=== PATIENT | female | born 1995 | race Caucasian/White ===

== ENCOUNTER → 2016-12-15 | Outpatient (CLI) | payer OTHER ==
[~2016-12-15] MED LIST: ACET50TA PO; ADVI200C5 PO; COLA100C5 PO; PRENTAB9 PO
[2016-12-15 14:32] LABS: BASO % 0.4 % (0.0-1.0); EOS # 0.1 K/mm3 (0.0-0.50); EOS % 0.7 % (0.0-3.0); LARGE UNSTAINED CELL # 0.1 K/mm3 (0.0-0.4); LARGE UNSTAINED CELL % 0.7 % (0.0-4.0); LYMPH # 1.6 K/mm3 (1.5-6.5); LYMPH % 14.2 % (24.0-44.0); MEAN CORPUSCULAR HGB CONC 34.5 g/dl (32.0-36.5); MEAN CORPUSCULAR VOLUME 89.6 fl (80.0-96.0); MONO # 0.4 K/mm3 (0.0-0.8); MONO % 4.1 % (0.0-5.0); NEUTROPHILS # 8.4 K/mm3 (1.8-7.7); NEUTROPHILS % 79.9 % (36.0-66.0); PLATELET COUNT, AUTOMATED 389 k/mm3 (150-450); RED CELL DISTRIBUTION WIDTH 12.5 % (11.5-14.5); WHITE BLOOD COUNT 10.5 K/mm3 (4.0-10.0)
[2016-12-16 11:27] LABS: HBsAg Prenatal NEGATIVE (NEGATIVE)
== END ==
LOC: M SMT 10:31
PROVIDERS: ATTEND Advanced Practice Midwife
DX: Z34.83 Encounter for supervision of other normal pregnancy, third trimester (principal)

== ENCOUNTER → 2016-12-16 | Outpatient (CLI) | payer OTHER ==
--- NOTE | 2016-12-16 11:07 | REP ---
OB ULTRASOUND: Real-time sonographic evaluation of the gravid uterus is performed. There is a single living intrauterine gestation, estimated gestational age 30 weeks 1 day, EDC 02/23/2017. Biometry and Growth: BPD 76 mm = 30 weeks 2 days HC 286 mm = 31 weeks 3 days AC 264 mm = 30 weeks 4 days FL 56 mm = 29 weeks 3 days HC/AC ratio 1.08 within normal range. Estimated weight 1540 grams, 43rd percentile. SEEN/GROSSLY UNREMARKABLE Lateral ventricles Yes Posterior fossa Yes Upper lip Yes Four-chamber heart No LVOT Yes RVOT Yes Stomach Yes Cord insertion Yes Three vessel cord Yes Kidneys Yes Bladder Yes Spine No Cervical length: Closed and measures 5.1 cm in length. heart rate: 133 beats per minute. position: Vertex. Placenta: Anterior and grade 1 with no previa or abruption. Amniotic fluid: Within normal limits. SUHAIL is 11.3 within the normal range of 9.0 to 23.5. S/D ratio 2.92 within normal range. RI 0.66 within normal range. Signed by Jimmy Sibley MD 12/16/2016 05:09 P
== END ==
LOC: M RAD 08:16
PROVIDERS: ATTEND Advanced Practice Midwife
DX: Z36 Encounter for antenatal screening of mother (principal); Z3A.30 30 weeks gestation of pregnancy

== ENCOUNTER → 2017-01-18 | Outpatient (CLI) | payer OTHER ==
--- NOTE | 2017-01-18 17:30 | REP ---
OB ULTRASOUND: Real-time sonographic evaluation of the gravid uterus is performed. There is a single living intrauterine gestation. The estimated gestational age is 34 weeks 6 days based on the first ultrasound. EDC 02/23/2017. Today's measurements indicate appropriate growth. BPD 82 mm = 32 weeks 6 days, at the 19th percentile. HC 305 mm = 34 weeks 0 days, at the 36th percentile. AC 311 mm = 35 weeks 0 day, at the 52nd percentile. Femur length 66 mm = 34 weeks 0 days, at the 37th percentile. HC/AC ratio 1.16 within normal range. Estimated weight 2426 grams 39th percentile. heart rate 131 beats per minute. Amniotic fluid within normal limits. SUHAIL 13.8 within normal range of 7.9 to 24.9. SD ratio 2.62 is within normal range. RI 0.62 is within normal range. SEEN/GROSSLY UNREMARKABLE Lateral ventricles Yes Posterior fossa Yes Upper lip No Four-chamber heart No LVOT No RVOT Yes Stomach No Cord insertion Yes Three vessel cord Yes Kidneys Yes Bladder Yes Spine Yes position: Vertex. Placenta: Anterior and grade 2 with no previa or abruption. Cervix is closed and measures 4.4 cm in length. Signed by Jimmy Sibley MD 01/19/2017 01:44 P
== END ==
LOC: M RAD 16:25
PROVIDERS: ATTEND Obstetrics & Gynecology
DX: Z36 Encounter for antenatal screening of mother (principal)

== ENCOUNTER → 2017-01-28 | Outpatient (REF) | payer OTHER, MEDICAID | LOC: M LAB REF 16:51 | PROVIDERS: ATTEND Advanced Practice Midwife | DX: Z34.83 Encounter for supervision of other normal pregnancy, third trimester (principal) ==

== ENCOUNTER 2017-02-16 16:49 | Inpatient (IN) | payer MEDICAID, OTHER ==
[~2017-02-16] VITALS: Ht 162.6 cm; Wt 76.0 kg
[2017-02-16 17:18] VITALS: BP 134/89
[2017-02-16] MEDS ORDERED: PRENTAB9 PO (17:52)
[2017-02-16] MEDS ORDERED: ACETAMINOPHEN 500 MG TAB PO ONE (18:00)
[2017-02-16 18:09] VITALS: BP 128/73
[2017-02-16] MEDS ORDERED: LR 1,000 ML IV SCH (19:28)
[2017-02-16] MEDS ORDERED: LACTATED RINGER'S 1000 ML IV STA (19:28)
[2017-02-16] MEDS ORDERED: OXYTOCIN DRIP 30 UNITS in APPROPRIATE DILUENT 1 EA IV SCH (19:30)
[2017-02-16 20:13] LABS: MEAN CORPUSCULAR HEMOGLOBIN 30.4 pg (27.0-33.0); MEAN CORPUSCULAR HGB CONC 34.3 g/dl (32.0-36.5); MEAN CORPUSCULAR VOLUME 88.5 fl (80.0-96.0); RED CELL DISTRIBUTION WIDTH 12.9 % (11.5-14.5); WHITE BLOOD COUNT 10.5 10^3/uL (4.0-10.0)
[2017-02-16 21:30] VITALS: BP 123/78
[2017-02-16 22:27] VITALS: BP 108/69
[2017-02-16 23:05] VITALS: BP 116/69
[2017-02-16 23:26] VITALS: BP 120/62
[2017-02-17] VITALS (36 sets, daily range): BP systolic 107–192; BP diastolic 56–109
[2017-02-17] MEDS ORDERED: PROMETHAZINE INJ 25 MG/ML VIAL (J2550) IV ONE (11:00)
[2017-02-17] MEDS ORDERED: BUTORPHANOL 2 MG/ML INJ (J0595) IV ONE (11:00)
[2017-02-17] MEDS ORDERED: FENTANYL 2MCG/ML ROPIVACAINE 0.2% IN 0.9% NACL 200ML IVBAG As Ordered ONE (14:17)
[2017-02-17] MEDS ORDERED: ONDANSETRON 4MG/2ML VIAL (J2405) IV PRN ×2 (15:30→16:45)
[2017-02-17] MEDS ORDERED: REFRIGERATOR IV KEYS XX PRN (15:30)
[2017-02-17] MEDS ORDERED: diphenhydrAMINE INJ 50MG/ML VIAL (J1200) IV PRN (15:30)
[2017-02-17] MEDS ORDERED: NALOXONE INJ 0.4 MG/1 ML VIAL (J2310) IV PRN (15:30)
[2017-02-17] MEDS ORDERED: ePHEDrine SULFATE 25 MG/5 ML(5MG/ML) SYRINGE IV PRN (15:30)
[2017-02-17] MEDS ORDERED: FENTANYL/ROPIVACAINE/NACL BAG 200 ML EPIDURAL SCH (15:30)
[2017-02-17] MEDS ORDERED: EPIDURAL/PCA KEYS XX PRN (15:30)
[2017-02-17] MEDS ORDERED: EPIDURAL COMMENT XX SCH (15:30)
[2017-02-17] MEDS ORDERED: LACTATED RINGER'S 1000 ML IV PRN (15:30)
[2017-02-17] MEDS ORDERED: LIDOCAINE 1% MDV INJ 50 ML VIAL As Ordered ONE (16:00)
[2017-02-17 16:19] LABS: CORD GAS ABE V -5.8; CORD GAS HCO3 V 20.6 MEQ/L; CORD GAS O2 SAT V 72.1 %; CORD GAS PCO2 V 43.8 mmHg; CORD GAS PH V 7.291 UNITS; CORD GAS PO2 V 30.8 mmHg; CORD GAS SBC V 19.1 MEQ/L
[2017-02-17 16:21] LABS: CORD GAS ABE A -4.5; CORD GAS O2 SAT A 70.7 %; CORD GAS PCO2 A 45.3 mmHg; CORD GAS PH A 7.304 UNITS; CORD GAS PO2 A 29.4 mmHg; CORD GAS SBC A 20.2 MEQ/L; CORD GAS TCO2 A 23.4 MEQ/L
[2017-02-17] MEDS ORDERED: METHYLERGONOVINE MALEATE 0.2 MG TAB PO PRN (16:45)
[2017-02-17] MEDS ORDERED: MEASLES,MUMPS,RUBELLA VACCINE INJ (MMR-II) (90707) SC SCH (16:45)
[2017-02-17] MEDS ORDERED: OXYTOCIN DRIP 30 UNITS in APPROPRIATE DILUENT 1 EA IV ONE (16:45)
[2017-02-17] MEDS ORDERED: LIDOCAINE 1% MDV INJ 50 ML VIAL INFIL ONE (16:45)
[2017-02-17] MEDS ORDERED: DIBUCAINE 1% OINTMENT 30GM TOP PRN (16:45)
[2017-02-17] MEDS ORDERED: ACETAMINOPHEN 500 MG TAB PO PRN (16:45)
[2017-02-17] MEDS ORDERED: RHOGAM 300 MCG (1500 IU) INJ (J2790) IM SCH (16:45)
[2017-02-17] MEDS ORDERED: DOCUSATE SODIUM 100 MG CAP PO PRN (16:45)
--- NOTE | 2017-02-17 16:49 | DN ---
DATE: 02/17/2017 PREDELIVERY DIAGNOSIS: 39 weeks gestation. POSTDELIVERY DIAGNOSIS: Delivered. PROCEDURE: vacuum assisted vaginal delivery. SUPERVISOR LEAD BURNING: Dr. Raj Randall ANESTHESIA: Epidural. ESTIMATED BLOOD LOSS: 300 mL. FINDINGS: A 6 pounds, 14 ounce male infant, scores 8 and 9. DELIVERY SUMMARY: After approximately 45 minutes of second stage, the patient had arrest of descent at +3 station. Vacuum was applied and delivery was accomplished with a single controlled contraction along with maternal effort. There was no nuchal cord. The shoulders delivered with ease. The infant cried spontaneously and was handed to the mother. The cord was doubly clamped and cut. The placenta delivered spontaneously. The patient received IV pitocin immediately after delivery of the placenta. First-degree perineal laceration and first-degree right labial laceration were repaired with 2-0 and 3-0 chromic in the usual fashion. Sponge and needle counts were correct. MTDD
[2017-02-18 06:00] VITALS: BP 135/82
[2017-02-18] MEDS: PRENATAL VITAMINS CHEWABLE TABLET PO SCH (08:43)
[2017-02-18] MEDS: IBUPROFEN 800 MG TAB PO PRN (12:21)
[2017-02-18 18:00] VITALS: BP 136/63
[2017-02-19] MEDS: IBUPROFEN 800 MG TAB PO PRN (01:35)
[2017-02-19 06:00] VITALS: BP 125/72
[2017-02-19] MEDS: PRENATAL VITAMINS CHEWABLE TABLET PO SCH (09:00)
[2017-02-19] MEDS ORDERED: ACET50TA PO ×2 (15:24→15:36)
[2017-02-19] MEDS ORDERED: COLA100C5 PO (15:36)
[2017-02-19] MEDS ORDERED: ADVI200C5 PO (15:36)
== END 2017-02-19 16:15 | disposition home or self-care (01) | DRG 560 ==
LOC: M LDO 16:49 → M LDI 18:53 → M OBS 02-17 18:14
PROVIDERS: ADMIT Obstetrics & Gynecology; ATTEND Specialist
PROC: 3E033VJ Introduction of Other Hormone into Peripheral Vein, Percutaneous Approach (ICD-10-PCS; 2017-02-16)
PROC: 10D07Z6 Extraction of Products of Conception, Vacuum, Via Natural or Artificial Opening (ICD-10-PCS; principal; 2017-02-17)
PROC: 0HQ9XZZ Repair Perineum Skin, External Approach (ICD-10-PCS; 2017-02-17)
PROC: 10907ZC Drainage of Amniotic Fluid, Therapeutic from Products of Conception, Via Natural or Artificial Opening (ICD-10-PCS; 2017-02-17)
DX: O41.03X0 Oligohydramnios, third trimester, not applicable or unspecified (principal); O66.8 Other specified obstructed labor; F17.210 Nicotine dependence, cigarettes, uncomplicated; O99.333 Smoking (tobacco) complicating pregnancy, third trimester; Z91.19 Patient's noncompliance with other medical treatment and regimen; Z3A.39 39 weeks gestation of pregnancy; O32.4XX0 Maternal care for high head at term, not applicable or unspecified; O70.0 First degree perineal laceration during delivery; Z37.0 Single live birth

== ENCOUNTER 2018-03-08 10:44 | Emergency (ER) | payer OTHER ==
[2018-03-08] MEDS: NS 1,000 ML IV (11:45)
[2018-03-08 12:12] LABS: KETONE, URINE AUTO RFX NEGATIVE (NEGATIVE); MUCUS, URINE RFX SMALL (NEGATIVE); NITRITE, URINE AUTO RFX NEGATIVE (NEGATIVE); RBC, URINE AUTO RFX TNTC /HPF (0-3); SQUAM EPITHELIAL CELL UR AURFX 2 /HPF (0-6)
[2018-03-08 12:21] LABS: LEUKOCYTE ESTERASE UR AUTO RFX 3+ (NEGATIVE); WBC, URINE AUTO RFX TNTC /HPF (0-3)
== END 2018-03-08 12:46 | disposition admitted as inpatient to this hospital (09) ==
LOC: M ED 10:44
DX: O99.89 Other specified diseases and conditions complicating pregnancy, childbirth and the puerperium (principal); R10.9 Unspecified abdominal pain; Z3A.31 31 weeks gestation of pregnancy; O99.333 Smoking (tobacco) complicating pregnancy, third trimester; F17.200 Nicotine dependence, unspecified, uncomplicated
CPT/HCPCS: 76820

== ENCOUNTER 2018-03-08 12:35 | Outpatient (CLI) | payer OTHER ==
[2018-03-08 13:52] LABS: BASO # 0.1 10^3/uL (0.0-0.2); BASO % 0.4 % (0.0-1.0); EOS % 0.1 % (0.0-3.0); HEMATOCRIT 34.2 % (36.0-47.0); HEMOGLOBIN 11.7 g/dl (12.0-15.5); IMMATURE GRANULOCYTE % 0.5 % (0-3.0); LYMPH # 1.5 10^3/uL (1.5-6.5); MEAN CORPUSCULAR HEMOGLOBIN 30.4 pg (27.0-33.0); MEAN CORPUSCULAR HGB CONC 34.2 g/dl (32.0-36.5); MEAN CORPUSCULAR VOLUME 88.8 fl (80.0-96.0); MONO # 0.9 10^3/uL (0.0-0.8); MONO % 5.2 % (0.0-5.0); NEUTROPHILS # 13.9 10^3/uL (1.8-7.7); NEUTROPHILS % 84.8 % (36.0-66.0); PLATELET COUNT, AUTOMATED 390 10^3/uL (150-450); RED BLOOD COUNT 3.85 10^6/uL (4.00-5.40); RED CELL DISTRIBUTION WIDTH 12.5 % (11.5-14.5); WHITE BLOOD COUNT 16.4 10^3/uL (4.0-10.0)
[2018-03-08] MEDS: LR 1,000 ML IV (14:24)
[2018-03-08] MEDS: ceFAZolin SOD 1 GM in D5W MINI-BAG PLUS 50 ML IV (14:24)
[2018-03-08] MEDS: LACTATED RINGER'S 1000 ML IV (14:24)
[2018-03-09 10:35] LABS: HEPATITIS C VIRUS ABY INDEX < 0.0 INDEX (<0.8)
[2018-03-09 10:35] LABS: HBsAg Prenatal NEGATIVE (NEGATIVE); HIV 1&2 SCREEN CENTAUR NEGATIVE (NEGATIVE); RUBELLA IgG QUALITATIVE IMMUNE (IMMUNE)
== END 2018-03-08 16:00 | disposition home or self-care (01) ==
LOC: M LDO 12:35
DX: O99.89 Other specified diseases and conditions complicating pregnancy, childbirth and the puerperium (principal); R10.9 Unspecified abdominal pain; O26.833 Pregnancy related renal disease, third trimester; N13.30 Unspecified hydronephrosis; Z3A.31 31 weeks gestation of pregnancy
CPT/HCPCS: J0690

== ENCOUNTER → 2018-03-15 | Outpatient (REF) | payer OTHER ==
[2018-03-15 16:11] LABS: CHLAMYDIA DNA AMPLIFICATION NEGATIVE (NEGATIVE); GC DNA AMPLIFICATION NEGATIVE (NEGATIVE)
== END ==
LOC: M LAB REF 13:23
DX: Z34.83 Encounter for supervision of other normal pregnancy, third trimester (principal); Z3A.00 Weeks of gestation of pregnancy not specified
CPT/HCPCS: 87591

== ENCOUNTER → 2018-04-11 | Outpatient (REF) | payer OTHER | LOC: M LAB REF 17:15 | DX: Z34.83 Encounter for supervision of other normal pregnancy, third trimester (principal) ==

== ENCOUNTER → 2018-04-15 | Outpatient (CLI) | payer OTHER | LOC: M LRY 08:16 | DX: O26.843 Uterine size-date discrepancy, third trimester (principal); Z3A.36 36 weeks gestation of pregnancy | CPT/HCPCS: 76816 ==

== ENCOUNTER 2018-04-27 07:31 | Inpatient (IN) | payer MEDICAID, OTHER ==
[2018-04-27] MEDS: LACTATED RINGER'S 1000 ML IV (08:02)
[2018-04-27] MEDS ORDERED: LR 1,000 ML IV (08:02)
[2018-04-27 08:24] LABS: HEMATOCRIT 35.9 % (36.0-47.0); MEAN CORPUSCULAR HEMOGLOBIN 29.2 pg (27.0-33.0); MEAN CORPUSCULAR HGB CONC 33.4 g/dl (32.0-36.5); MEAN CORPUSCULAR VOLUME 87.3 fl (80.0-96.0); PLATELET COUNT, AUTOMATED 388 10^3/uL (150-450); RED BLOOD COUNT 4.11 10^6/uL (4.00-5.40); RED CELL DISTRIBUTION WIDTH 13.2 % (11.5-14.5); WHITE BLOOD COUNT 15.4 10^3/uL (4.0-10.0)
[2018-04-27] MEDS ORDERED: OXYTOCIN 30 UNITS IN 0.9% NaCl 500ML IV BAG (J2590) As Ordered (08:38)
[2018-04-27] MEDS: OXYTOCIN DRIP 30 UNITS in APPROPRIATE DILUENT 1 EA IV (08:52)
[2018-04-27 08:54] LABS: ALT/SGPT 12 U/L (12-78); AST/SGOT 13 U/L (7-37); BILIRUBIN,TOTAL 0.2 MG/DL (0.2-1.0); CREATININE FOR GFR 0.52 MG/DL (0.55-1.30); GLOMERULAR FILTRATION RATE > 60.0 (>60); LDH LACTATE DEHYDROGENASE 150 U/L (84-246); URIC ACID 4.2 MG/DL (2.6-6.0)
[2018-04-27] MEDS: PRENATAL VITAMINS CHEWABLE TABLET PO (09:00)
[2018-04-27] MEDS ORDERED: DOCUSATE SODIUM 100 MG CAP PO (09:15)
[2018-04-27] MEDS ORDERED: METHYLERGONOVINE MALEATE 0.2 MG TAB PO (09:15)
[2018-04-27] MEDS ORDERED: ACETAMINOPHEN 500 MG TAB PO (09:15)
[2018-04-27] MEDS ORDERED: DIBUCAINE 1% OINTMENT 30GM TOP (09:15)
[2018-04-27] MEDS ORDERED: ONDANSETRON 4MG/2ML VIAL (J2405) IV (09:15)
[2018-04-27] MEDS: MEASLES,MUMPS,RUBELLA VACCINE INJ (MMR-II) (90707) SC (12:54)
[2018-04-27] MEDS: RHOGAM 300 MCG (1500 IU) INJ (J2790) IM (12:54)
[2018-04-27] MEDS: IBUPROFEN 800 MG TAB PO (12:58)
[2018-04-27] MEDS ORDERED: OXYTOCIN INJ 10 UNITS/ML VIAL (J2590) As Ordered (14:24)
[2018-04-27] MEDS: NICOTINE 21MG/24HR 1 EA TRANSDERMAL TD (17:42)
[2018-04-28] MEDS: IBUPROFEN 800 MG TAB PO (07:33)
[2018-04-28] MEDS: PRENATAL VITAMINS CHEWABLE TABLET PO (09:21)
[2018-04-28] MEDS: ADACEL/BOOSTRIX VACCINE (DIPHTH/PERTUSS/ACELL/TETANUS)0.5ML SYR (90715) IM (09:21)
[2018-04-28] MEDS: INFLUENZA QUADRIVALENT PF VACCINE 0.5ML SYRINGE (90686) IM (09:22)
[2018-04-28] MEDS: NICOTINE 21MG/24HR 1 EA TRANSDERMAL TD (09:30)
== END 2018-04-28 13:50 | disposition home or self-care (01) | DRG 560 ==
LOC: M LDO 07:31 → M LDI 08:00 → M OBS 12:09
PROC: 10E0XZZ Delivery of Products of Conception, External Approach (ICD-10-PCS; principal; 2018-04-27)
DX: O80 Encounter for full-term uncomplicated delivery (principal); Z37.0 Single live birth; Z3A.38 38 weeks gestation of pregnancy

== ENCOUNTER 2018-08-13 13:20 | Emergency (ER) | payer MEDICAID ==
[~2018-08-13] VITALS: Ht 162.6 cm; Wt 68.2 kg
[~2018-08-13 13:20] MED LIST changes: -ACET50TA PO; +CEPH500C PO; +IBUP-1114 PO; +MAPA500T2 PO
[2018-08-13] MEDS ORDERED: AMOX500C PO (14:29)
[2018-08-13 14:34] VITALS: BP 145/98
== END 2018-08-13 14:50 | disposition home or self-care (01) ==
LOC: M ED 13:20
DX: H66.91 Otitis media, unspecified, right ear (principal); H72.91 Unspecified perforation of tympanic membrane, right ear; Z72.0 Tobacco use

== ENCOUNTER → 2019-04-05 | Outpatient (CLI) | payer OTHER ==
[~2019-04-05] MED LIST changes: +AMOX500C PO
--- NOTE | 2019-04-05 14:55 | REP ---
FIRST TRIMESTER ULTRASOUND: Real-time sonographic evaluation of the gravid uterus performed. There is a single living intrauterine gestation with an estimated gestational age 10 weeks 1 day based on crown-rump length of 33 mm, EDC 10/31/2019. heart rate 168 beats per minute. There is no subchorionic hemorrhage. A cystic structure of the right ovary probably represents a corpus luteum 2.8 x 2.2 x 2.5 cm. Electronically Signed by Jimmy Sibley MD 04/05/2019 03:23 P
== END ==
LOC: M LRY 13:40
PROVIDERS: ATTEND Nurse Practitioner Family
DX: Z32.01 Encounter for pregnancy test, result positive (principal)

== ENCOUNTER 2019-04-22 13:23 | Emergency (ER) | payer OTHER ==
[~2019-04-22] VITALS: Ht 162.6 cm; Wt 72.7 kg
[2019-04-22] MEDS ORDERED: HYDR-3713 PO (13:30)
[2019-04-22] MEDS ORDERED: ACETAMINOPHEN 500 MG TAB PO ONE (14:00)
[2019-04-22] MEDS ORDERED: LIDOCAINE 1% SDV 5 ML VIAL DILUENT ONE (14:15)
[2019-04-22] MEDS ORDERED: cefTRIAXone SOD 1 GM VIAL (J0696) IM ONE (14:15)
[2019-04-22 14:44] LABS: INFLUENZA A AMPLIFICATION NEGATIVE (NEGATIVE); INFLUENZA B AMPLIFICATION NEGATIVE (NEGATIVE)
[2019-04-22] MEDS ORDERED: MACR100C43 PO (14:52)
[2019-04-22 14:53] VITALS: BP 128/74
== END 2019-04-22 14:56 | disposition home or self-care (01) ==
LOC: M ED 13:23
DX: O23.41 Unspecified infection of urinary tract in pregnancy, first trimester (principal); Z3A.12 12 weeks gestation of pregnancy; O99.331 Smoking (tobacco) complicating pregnancy, first trimester; F17.210 Nicotine dependence, cigarettes, uncomplicated
CPT/HCPCS: 81000; 81001; 87088; 87186; 87502; 87880; 96372; 99284; J0696

== ENCOUNTER → 2019-05-23 | Outpatient (REF) | payer OTHER ==
[~2019-05-23] MED LIST changes: +HYDR-3713 PO; +MACR100C43 PO
== END ==
LOC: M SFHCWAGY 11:49
PROVIDERS: ATTEND Advanced Practice Midwife
DX: Z12.4 Encounter for screening for malignant neoplasm of cervix (principal)

== ENCOUNTER → 2019-06-02 | Outpatient (CLI) | payer OTHER ==
--- NOTE | 2019-06-02 16:44 | REP ---
OB ULTRASOUND: Real-time sonographic evaluation of the gravid uterus is performed. There is a single living intrauterine gestation. The estimated gestational age is 18 weeks 3 days based on the first ultrasound, EDC 10/31/2019. Today's measurements indicate appropriate growth. BPD 41 mm = 18 weeks 4 days, 54th percentile HC 163 mm = 19 weeks 0 days, 70th percentile AC 131 mm = 18 weeks 4 days, 55th percentile FL 30 mm = 19 weeks 1 day, 69th percentile HC/AC ratio 1.25, within normal range of 1.07 to 1.26. Estimated weight 262 grams, 65th percentile. Cervix is closed and measures 3.0 cm in length. heart rate 133 beats per minute. SEEN/GROSSLY UNREMARKABLE Lateral ventricles yes Posterior fossa yes Upper lip yes Four-chamber heart no LVOT no RVOT no Stomach yes Cord insertion yes Three vessel cord yes Kidneys yes Bladder yes Spine no position: Breech. Placenta: Posterior and fundal, grade 0 with no previa or abruption. Amniotic fluid: Within normal limits. Electronically Signed by Jimmy Sibley MD 06/02/2019 05:31 P
== END ==
LOC: M LRY 13:40
PROVIDERS: ATTEND Advanced Practice Midwife
DX: Z36.9 Encounter for antenatal screening, unspecified (principal); Z3A.18 18 weeks gestation of pregnancy

== ENCOUNTER → 2019-07-26 | Outpatient (REF) | payer OTHER ==
[2019-07-26 16:06] LABS: HEMATOCRIT 36.2 % (36.0-47.0); MEAN CORPUSCULAR HEMOGLOBIN 30.5 pg (27.0-33.0); MEAN CORPUSCULAR HGB CONC 33.1 g/dl (32.0-36.5); MEAN CORPUSCULAR VOLUME 91.9 fl (80.0-96.0); PLATELET COUNT, AUTOMATED 416 10^3/uL (150-450); RED BLOOD COUNT 3.94 10^6/uL (4.00-5.40); WHITE BLOOD COUNT 14.2 10^3/uL (4.0-10.0)
[2019-07-26 17:01] LABS: HEPATITIS B SURFACE ANTIGEN NEGATIVE (NEGATIVE); HEPATITIS C VIRUS ABY INDEX 0.1 INDEX (<0.8); HIV 1&2 SCREEN CENTAUR NEGATIVE (NEGATIVE); RUBELLA IgG QUALITATIVE IMMUNE (IMMUNE)
[2019-07-26 17:26] LABS: CHLAMYDIA DNA AMPLIFICATION NEGATIVE (NEGATIVE); GC DNA AMPLIFICATION NEGATIVE (NEGATIVE)
== END ==
LOC: M PLALAB 12:21
PROVIDERS: ATTEND Advanced Practice Midwife
DX: O99.332 Smoking (tobacco) complicating pregnancy, second trimester (principal)

== ENCOUNTER → 2019-08-10 | Outpatient (CLI) | payer OTHER ==
--- NOTE | 2019-08-10 17:53 | REP ---
Obstetric sonography: History: Supervision of , follow-up anatomy. Comparison study is from June 02, 2019. Findings: Scanning through the gravid uterus demonstrates a single living intrauterine gestation in a transverse lie, head to the maternal left. motion is observed and heart rate is recorded at 125 beats per minute. A posterior grade 0 placenta is seen without evidence of previa or abruption. Closed cervical length is measured at 3.0 cm viewed transabdominally. No extrauterine abnormality is noted. Amniotic fluid is subjectively normal. There has been appropriate interval growth. Four-chamber heart, right and left ventricular cardiac outflow tract views are visualized today and felt to be unremarkable. spine is less than optimally seen again due to position. Biometry chart: BPD 6.6 cm = 26 weeks 5 days HC 25.9 cm = 28 weeks 1 day AC 24.2 cm = 28 weeks 3 days FL 5.3 cm = 28 weeks 1 day HL 4.8 cm = 28 weeks 0 days HC/AC ratio normal 1.07. Cephalic index normal 0.69. Estimated weight 1206 grams, 2 pounds 10 ounces, 43rd percentile for 28 weeks 2 days. Impression: Viable single intrauterine gestation at 27 weeks 5 days by today's composite criteria. Expected gestational age estimate based on prior sonography is 28 weeks 2 days. NIRMAL by prior sonography October 31, 2019. spine still less than optimally visualized due to position.
== END ==
LOC: M WHC 13:55
PROVIDERS: ATTEND Advanced Practice Midwife
DX: O99.332 Smoking (tobacco) complicating pregnancy, second trimester (principal)

== ENCOUNTER → 2019-09-07 | Outpatient (REF) | payer OTHER | LOC: M SFHCWAGY 17:53 | PROVIDERS: ATTEND Advanced Practice Midwife | DX: Z34.83 Encounter for supervision of other normal pregnancy, third trimester (principal) ==

== ENCOUNTER → 2019-09-21 | Outpatient (CLI) | payer OTHER ==
--- NOTE | 2019-09-22 02:08 | REP ---
Clinical: Anatomical evaluation. Comparison: 08/10/2019 . Findings: Examination demonstrates a single live intrauterine in cephalic presentation. motion is identified by technologist. Placenta is noted posterior and grade I I without evidence for placenta previa or abruption. Amniotic fluid volume is normal. Cervix measures 3.3 cm in length and appears closed. No evidence for nuchal cord. Gestational age by LMP 34 weeks 2 days with NIRMAL 10/31/2019 . Gestational age by current measurements 33 weeks 0 days with NIRMAL 11/08/2019 . FHR equals 130 beats per minute. Estimated weight 2377 grams ( 46 percentile). Anatomical assessment demonstrates normal structures including cranium, facial features, diaphragm, stomach, three-vessel cord, kidneys/bladder, and spine. Impression: Single live intrauterine in cephalic presentation demonstrating appropriate estimated weight/growth. In conjunction with prior examination anatomical assessment is complete and normal.
== END ==
LOC: M WHC 09:34
PROVIDERS: ATTEND Advanced Practice Midwife
DX: Z34.83 Encounter for supervision of other normal pregnancy, third trimester (principal); Z36.2 Encounter for other antenatal screening follow-up; Z3A.34 34 weeks gestation of pregnancy

== ENCOUNTER → 2019-10-24 | Outpatient (REF) | payer OTHER | LOC: M SFHCWAGY 10:06 | PROVIDERS: ATTEND Advanced Practice Midwife | DX: Z36.85 Encounter for antenatal screening for Streptococcus B (principal); O09.33 Supervision of pregnancy with insufficient antenatal care, third trimester ==

== ENCOUNTER 2019-10-28 10:17 | Inpatient (IN) | payer OTHER ==
[~2019-10-28] VITALS: Ht 162.6 cm; Wt 88.9 kg
[2019-10-28] VITALS (9 sets, daily range): BP systolic 118–158; BP diastolic 61–92
[2019-10-28] MEDS ORDERED: IBUPROFEN 600MG TAB PO PRN ×2 (12:00→12:15)
[2019-10-28] MEDS ORDERED: DOCUSATE SODIUM 100 MG CAP PO PRN ×2 (12:00→12:15)
[2019-10-28] MEDS ORDERED: ANUSOL HC CREAM 30GM TOP PRN ×2 (12:00→12:15)
[2019-10-28] MEDS ORDERED: MOM 30ML SUSPENSION UDC PO PRN ×2 (12:00→12:15)
[2019-10-28] MEDS ORDERED: ACETAMINOPHEN 500 MG TAB PO PRN ×2 (12:00→12:15)
[2019-10-28] MEDS ORDERED: ACETAMINOPHEN TAB 650MG DOSE (2X325MG) PO PRN ×2 (12:00→12:15)
[2019-10-28] MEDS ORDERED: IBUPROFEN 800 MG TAB PO PRN (12:00)
[2019-10-28] MEDS ORDERED: RHOGAM 300 MCG (1500 IU) INJ (J2790) IM SCH ×2 (12:00→12:15)
[2019-10-28] MEDS ORDERED: MEASLES,MUMPS,RUBELLA VACCINE INJ (MMR-II) (90707) SC SCH ×2 (12:00→12:15)
[2019-10-28] MEDS ORDERED: OXYTOCIN INJ 10 UNITS/ML VIAL (J2590) IM ONE ×2 (12:00→12:45)
[2019-10-28] MEDS ORDERED: METHYLERGONOVINE MALEATE 0.2 MG TAB PO PRN ×2 (12:00→12:15)
[2019-10-28] MEDS ORDERED: DIBUCAINE 1% OINTMENT 30GM TOP PRN ×2 (12:00→12:15)
[2019-10-28 12:08] LABS: CORD GAS HCO3 A 21.8 MEQ/L; CORD GAS O2 SAT A 42.8 %; CORD GAS PCO2 A 46.5 mmHg; CORD GAS PH A 7.288 UNITS; CORD GAS PO2 A 19.1 mmHg; CORD GAS SBC A 19.1 MEQ/L; CORD GAS TCO2 A 23.2 MEQ/L
[2019-10-28 12:11] LABS: CORD GAS ABE V -2.1; CORD GAS HCO3 V 22.9 MEQ/L; CORD GAS O2 SAT V 77.9 %; CORD GAS PCO2 V 39.8 mmHg; CORD GAS PH V 7.377 UNITS; CORD GAS PO2 V 32.1 mmHg; CORD GAS SBC V 22.3 MEQ/L; CORD GAS TCO2 V 24.1 MEQ/L
[2019-10-28] MEDS ORDERED: OXYTOCIN INJ 10 UNITS/ML VIAL (J2590) As Ordered ONE (12:26)
--- NOTE | 2019-10-28 12:26 | HPEPDOC ---
Obstetrical History & Physical General Date of Admission Oct 28, 2019 at 10:53 History of Present Illness 24-year-old 3, para 2 who presents at 39 weeks 6 days estimated gestatio nal age for complaints of contractions. She reports contractions throughout the day that have been increasing in intensity and frequency. She denies any vaginal bleeding, leakage fluid. She reports active movements. 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: Abnormal Pap Past Medical History Surgical History: Denies/None Family History Significant Family History: Cancer, Diabetes, Hypertension Social History Marital Status: Single Psychosocial History: No pertinent psych hx * Smoker: current smoker Alcohol: Denies Drugs: denies Allergies Coded Allergies: No Known Allergies (Verified Allergy, Unknown, 04/22/19) Medications Scheduled Nitrofurantoin Monohyd/M-Cryst (Macrobid 100 mg Capsule) 100 Mg Capsule, 100 MG PO BID Scheduled PRN Acetaminophen (Mapap) 500 Mg Tab, 1,000 MG PO for HEADACHE OR PAIN Hydrocodone/Acetaminophen (Hydrocodone-Acetamin 5-325 mg) 1 Each Tablet, 1-2 TAB PO Q4-6HP PRN for pain Physical Examination Physical Examination GENERAL: Alert and oriented times three. BREAST: . ABDOMEN: Gravid and non-tender to touch. FETUS: Is vertex (VTX) by sterile vaginal examination (SVE), fetus is vertex (VTX) by Allan. HEART RATE: Regular rate and rhythm. LUNGS: Clear to auscultation (CTA). Vital Signs/I&O Vital Signs Date Time Temp Pulse Resp B/P (MAP) Pulse Ox O2 Delivery O2 Flow Rate FiO2 10/28/19 10:39 97.6 73 18 146/69 (94) Laboratory Data 24H LABS Laboratory Tests 2 10/28/19 11:39: Cord Arterial Blood pH 7.288, Cord Arterial Blood PCO2 46.5, Cord Arterial Blood PO2 19.1, Cord Arterial Blood HCO3 21.8, Cord Arterial Blood Total CO2 23.2, Cord Arterial Blood Base Excess -5.0, Cord Arterial Base Excess (Standard 19.1, Cord Arterial Bld Oxygen Saturation 42.8, Cord Venous Blood pH 7.377, Cord Venous Blood PCO2 39.8, Cord Venous Blood PO2 32.1, Cord Venous Blood HCO3 22.9, Cord Venous Blood Total CO2 24.1, Cord Venous Base Excess (Actual) -2.1, Cord Venous Base Excess (Standard) 22.3, Cord Venous Blood Oxygen Saturation 77.9 Pertinent Laboratoy Data Blood Type: O+ RBC Antibody Screen: Negative HIV: Negative Hepatitis B: Negative Hepatitis C: Negative Rapid Plasma Reagin: Nonreactive Rubella: Immune Chlamydia/Gonorrhea: Negative Group B Streptococcus: Negative Anatomy Ultrasound Placenta Location: Posterior Normal Anatomy: Yes Placenta Previa: No Vaginal Examination Dilation: 3 cm Effacement: 80% Station: -1 Cervical Consistency: Soft Cervical Position: Anterior Assessment Variability: Moderate Accelerations: Positive Tocometer Contractions: Yes Frequency: regular Assessment/Plan Assessment 24-year-old 3, para 2 at 39 weeks 6 days estimated gestational age in active labor. Reassuring status. Plan to return to labor and delivery, CBC, RPR, type and screen. Anticipate spontaneous vaginal delivery Plan Admit and orient. Survey Analyst and consent. Diet: Regular. Group B Streptococcus (GBS) negative. Labs and intravenous (IV) per unit protocol. Anticipate normal spontaneous delivery (). C-S as appropriate. MAYANK DUFFY MD. Oct 28, 2019 12:26
[2019-10-28] MEDS: IBUPROFEN 800 MG TAB PO PRN (12:30)
[2019-10-28 14:54] LABS: HEMATOCRIT 36.6 % (36.0-47.0); HEMOGLOBIN 12.2 g/dl (12.0-15.5); MEAN CORPUSCULAR HEMOGLOBIN 28.8 pg (27.0-33.0); MEAN CORPUSCULAR HGB CONC 33.3 g/dl (32.0-36.5); MEAN CORPUSCULAR VOLUME 86.5 fl (80.0-96.0); PLATELET COUNT, AUTOMATED 438 10^3/uL (150-450); RED BLOOD COUNT 4.23 10^6/uL (4.00-5.40); WHITE BLOOD COUNT 15.7 10^3/uL (4.0-10.0)
[2019-10-28] MEDS: NICOTINE 21MG/24HR 1 EA TRANSDERMAL TD SCH (15:53)
[2019-10-29 06:00] VITALS: BP 132/79
--- NOTE | 2019-10-29 06:57 | IPNPDOC ---
Progress Note Date of Service: Oct 29, 2019 Day#: 1 Progress Note SUBJECT: Doing well without complaints. Ambulating, voiding and pain is well- controlled. Reports minimal lochia. OBJECTIVE: VITAL SIGNS: Within normal limits, afebrile. Alert and oriented times three. Abdomen: Fundus firm at U-2. Soft, NTTP. Ext: neg calf tenderness. ASSESSMENT: day #1 status post normal spontaneous vaginal delivery. Recovering in stable condition. PLAN: 1. Continue routine care 2. Discharge plans for tomorrow VS, I&O, 24H, Fishbone Vital Signs/I&O Vital Signs Date Time Temp Pulse Resp B/P (MAP) Pulse Ox O2 Delivery O2 Flow Rate FiO2 10/29/19 06:00 98.7 82 20 132/79 (96) 10/28/19 13:48 97 Room Air I&O- Last 24 Hours up to 6 AM 10/29/19 06:00 Intake Total 400 ml Output Total 200 ml Balance 200 ml Laboratory Data 24H LABS Laboratory Tests 2 10/28/19 11:39: Cord Arterial Blood pH 7.288, Cord Arterial Blood PCO2 46.5, Cord Arterial Blood PO2 19.1, Cord Arterial Blood HCO3 21.8, Cord Arterial Blood Total CO2 23.2, Cord Arterial Blood Base Excess -5.0, Cord Arterial Base Excess (Standard 19.1, Cord Arterial Bld Oxygen Saturation 42.8, Cord Venous Blood pH 7.377, Cord Venous Blood PCO2 39.8, Cord Venous Blood PO2 32.1, Cord Venous Blood HCO3 22.9, Cord Venous Blood Total CO2 24.1, Cord Venous Base Excess (Actual) -2.1, Cord Venous Base Excess (Standard) 22.3, Cord Venous Blood Oxygen Saturation 77.9 10/28/19 13:04: Nucleated Red Blood Cells % (auto) 0.0 10/28/19 13:20: Serology Scanned Report Hepatitis B Testing CBC/BMP Laboratory Tests 10/28/19 13:04 MAYANK DUFFY MD. Oct 29, 2019 06:56
[2019-10-29 08:02] LABS: HEMATOCRIT 32.1 % (36.0-47.0); HEMOGLOBIN 10.7 g/dl (12.0-15.5); MEAN CORPUSCULAR HGB CONC 33.3 g/dl (32.0-36.5); PLATELET COUNT, AUTOMATED 365 10^3/uL (150-450); RED BLOOD COUNT 3.69 10^6/uL (4.00-5.40); WHITE BLOOD COUNT 11.6 10^3/uL (4.0-10.0)
[2019-10-29] MEDS ORDERED: PRENATAL VITAMINS CHEWABLE TABLET PO SCH ×2 (09:00)
[2019-10-29] MEDS: NICOTINE 21MG/24HR 1 EA TRANSDERMAL TD SCH (09:12)
[2019-10-29] MEDS: IBUPROFEN 800 MG TAB PO PRN (09:13)
--- NOTE | 2019-10-31 21:20 | DN ---
DATE: 10/28/2019 DELIVERY NOTE: This lady is a 3, para 2 who was admitted in active labor, precipitously delivered just as getting into bed, a live female , meconium stained, 7 pounds 11 ounces, 3480 grams, scores of 9 and 9 at 1 and 5 minutes respectively. Baby was heavily meconium stained as was the placenta. Three-vessel cord. Arterial and venous pH were performed. The uterus contracted well down on Pitocin. Placenta was intact. Perineum, lateral and midline areas were normal. Sphincter was tight. Uterus contracted well down under IM Pitocin 10 mg. The patient and the baby are tolerating the procedure well.
== END 2019-10-30 01:07 | disposition home or self-care (01) | DRG 560 ==
LOC: M LDO 10:17 → M LDI 10:53 → M OBS 13:40
PROVIDERS: ADMIT Obstetrics & Gynecology; ATTEND Obstetrics & Gynecology
PROC: 10E0XZZ Delivery of Products of Conception, External Approach (ICD-10-PCS; principal; 2019-10-28)
DX: O62.3 Precipitate labor (principal); Z37.0 Single live birth; Z3A.39 39 weeks gestation of pregnancy; O99.334 Smoking (tobacco) complicating childbirth; F17.210 Nicotine dependence, cigarettes, uncomplicated

== ENCOUNTER 2020-12-16 13:12 | Emergency (ER) | payer OTHER ==
[~2020-12-16] VITALS: Ht 162.6 cm; Wt 81.8 kg
[2020-12-16] MEDS ORDERED: NS 1,000 ML IV ONE (16:00)
[2020-12-16] MEDS ORDERED: LIDOCAINE VISCOUS 2% SOLN 15ML UDC SSP ONE (16:05)
[2020-12-16 16:37] LABS: BASO # 0.1 10^3/uL (0.0-0.2); BASO % 0.5 % (0.0-1.0); EOS # 0.1 10^3/uL (0.0-0.5); EOS % 0.8 % (0.0-3.0); HEMATOCRIT 42.6 % (36.0-47.0); HEMOGLOBIN 14.2 g/dl (12.0-15.5); LYMPH # 1.8 10^3/uL (1.5-5.0); LYMPH % 12.1 % (24.0-44.0); MEAN CORPUSCULAR HEMOGLOBIN 28.7 pg (27.0-33.0); MEAN CORPUSCULAR HGB CONC 33.3 g/dl (32.0-36.5); MEAN CORPUSCULAR VOLUME 86.1 fl (80.0-96.0); MONO # 0.9 10^3/uL (0.0-0.8); MONO % 5.6 % (2.0-8.0); NEUTROPHILS # 12.1 10^3/uL (1.5-8.5); NEUTROPHILS % 80.6 % (36.0-66.0); PLATELET COUNT, AUTOMATED 607 10^3/uL (150-450); RED BLOOD COUNT 4.95 10^6/uL (4.00-5.40); WHITE BLOOD COUNT 15.1 10^3/uL (4.0-10.0)
[2020-12-16] MEDS ORDERED: KETOROLAC 30 MG/ML 1ML VIAL IV ONE (16:45)
[2020-12-16] MEDS ORDERED: ISOVUE-370 76% 100ML VIAL As Ordered ONE (16:46)
[2020-12-16 16:57] LABS: C REACTIVE PROTEIN QUANTITATIV 5.31 MG/DL (0.00-0.30)
[2020-12-16 17:19] LABS: MONO SCRN NEGATIVE (NEGATIVE)
--- NOTE | 2020-12-16 17:53 | REPVR ---
PROCEDURE INFORMATION: Exam: CT Neck With Contrast Exam date and time: 12/16/2020 3:58 PM Age: 25 years old Clinical indication: Dysphagia / difficulty swallowing; Additional info: Inability to swallow spit/pain TECHNIQUE: Imaging protocol: Computed tomography images of the neck with contrast. Radiation optimization: All CT scans at this facility use at least one of these dose optimization techniques: automated exposure control; mA and/or kV adjustment per patient size (includes targeted exams where dose is matched to clinical indication); or iterative reconstruction. Contrast material: ISOVUE 370; Contrast volume: 75 ml; Contrast route: INTRAVENOUS (IV); COMPARISON: No relevant prior studies available. FINDINGS: Nasopharynx: Unremarkable. Oropharynx: Mild asymmetric soft tissue density in the left vallecula likely reflects retained mucus secretions, but if clinically warranted, could consider direct visualization of this region. No peritonsillar abscess. Hypopharynx: Unremarkable. Larynx: Unremarkable. Normal epiglottis. Retropharyngeal space: Unremarkable. Submandibular/Parotid glands: Normal. Glands are normal in size. Thyroid: Normal. No enlarged or calcified nodules. Lymph nodes: Scattered small to slightly prominent cervical lymph nodes are seen bilaterally. These remain within normal limits of size and are nonspecific. Trachea: Visualized trachea is unremarkable. Lungs: Unremarkable as visualized. Other findings: There is no airway compromise demonstrated. IMPRESSION: 1. Mild asymmetric soft tissue density in the left vallecular likely reflects retained mucus secretions, but if clinically warranted, could consider direct visualization of this region. 2. No peritonsillar abscess or airway compromise. Electronically signed by: Christina Vo On 12/16/2020 17:52:57 PM
[2020-12-16] MEDS ORDERED: AUGMENTIN 875 MG TAB PO ONE (18:35)
[2020-12-16 18:48] LABS: ALBUMIN 3.7 GM/DL (3.2-5.2); ALT/SGPT 18 U/L (12-78); BILIRUBIN,DIRECT 0.1 MG/DL (0.0-0.2); BILIRUBIN,TOTAL 0.3 MG/DL (0.2-1.0); LIPASE 44 U/L (73-393); TOTAL PROTEIN 8.5 GM/DL (6.4-8.2)
[2020-12-16] MEDS ORDERED: MUCI600T31 PO (19:41)
[2020-12-16] MEDS ORDERED: AUGM875T28 PO (19:47)
[2020-12-16 20:08] VITALS: BP 150/84
--- NOTE | 2020-12-17 11:49 | ED PDOC ---
Post-Departure Follow-Up [facility] and dr mackay faxed formal report of ct neck for fu Maddie Stinson MD Dec 17, 2020 11:49
== END 2020-12-16 20:10 | disposition home or self-care (01) ==
LOC: M ED 13:12
DX: H66.93 Otitis media, unspecified, bilateral (principal); J02.9 Acute pharyngitis, unspecified; D47.3 Essential (hemorrhagic) thrombocythemia; K02.9 Dental caries, unspecified; Z86.19 Personal history of other infectious and parasitic diseases

== ENCOUNTER → 2020-12-26 | Outpatient (REF) | payer OTHER ==
[~2020-12-26] MED LIST changes: +AUGM875T28 PO; +MUCI600T31 PO
== END ==
LOC: M LAB REF 18:54
PROVIDERS: ATTEND Otolaryngology
DX: J34.81 Nasal mucositis (ulcerative) (principal)

== ENCOUNTER → 2021-02-06 | Outpatient (CLI) | payer OTHER ==
--- NOTE | 2021-02-06 11:45 | REP ---
INDICATION: NASAL MUCOISTIS, PAIN, THYROIDITIS CT 1ST US 2ND COMPARISON: None. TECHNIQUE: Sibley scale and color evaluation of the thyroid gland using the linear high frequency transducer. FINDINGS: The thyroid gland is normal in contour, shape, size, and echogenicity. No nodule/mass or cystic abnormalities are appreciated. Right thyroid lobe measures 6.0 x 1.7 x 1.4 cm. Isthmus measures 2.7 mm in width. Left thyroid lobe measures 4.5 x 1.8 x 1.1 cm. Two small ovoid hypoechoic structures adjacent to the thyroid gland consistent with small normal appearing lymph nodes. IMPRESSION: Normal thyroid ultrasound. <Electronically signed by Burak Rice > 02/06/21 [id number]
--- NOTE | 2021-02-06 11:49 | REPVR ---
PROCEDURE INFORMATION: Exam: CT Maxillofacial Without Contrast, Sinus Exam date and time: 02/06/2021 11:15 AM Age: 26 years old Clinical indication: Nose pain; Additional info: Nasal mucoistis, pain, thyroiditis CT 1st US 2nd TECHNIQUE: Imaging protocol: CT Maxillofacial without contrast. Focus on the sinuses. Radiation optimization: All CT scans at this facility use at least one of these dose optimization techniques: automated exposure control; mA and/or kV adjustment per patient size (includes targeted exams where dose is matched to clinical indication); or iterative reconstruction. COMPARISON: CT Neck with contrast 12/16/2020 5:21 PM FINDINGS: Frontal sinuses: Normal. No air-fluid levels. Ethmoid air cells: Mild left ethmoid mucosal thickening. Sphenoid sinuses: Mild mucosal thickening along the anterior wall of the left sphenoid sinus extending along the sphenoid ostium which is narrowed. The right sphenoid sinus and sphenoid ostium are clear and patent. Maxillary sinuses: Mild mucosal thickening in the left maxillary sinus. Mucosal disease does opacify the left ostiomeatal unit. Nasal cavity/Septum: No nasal cavity masses. There is left nasal cavity mucosal congestion. Mild apex left deviation of the nasal septum. Orbital cavity: Orbits are normal. Globes are unremarkable. Bones/joints: Unremarkable. Soft tissues: Unremarkable. Mastoid air cells: Left mastoid effusion has developed since the prior study. Dental: Considerable dental disease is noted, in particular, molar cavities and maxillary molar periapical lucencies. Left maxillary periapical abscesses thin or cause dehiscence of the maxillary sinus floor. IMPRESSION: 1. Mild, chronic sinusitis. In particular, chronic left maxillary sinusitis which may be related to significant maxillary dental disease. 2. The left ostiomeatal unit is opacified by mucosal disease. 3. Left nasal cavity mucosal congestion. 4. Nonspecific left mastoid effusion has developed since the prior study. Please correlate clinically for signs of mastoiditis. Alternatively, the fluid could be related to eustachian tube dysfunction. Electronically signed by: Krysten Urbina On 02/06/2021 11:48:37 AM
== END ==
LOC: M RAD 11:00
PROVIDERS: ATTEND Otolaryngology
DX: J34.81 Nasal mucositis (ulcerative) (principal); E06.9 Thyroiditis, unspecified; R52 Pain, unspecified

== ENCOUNTER 2022-12-15 18:08 | Inpatient (IN) | payer OTHER ==
[~2022-12-15] VITALS: Ht 162.6 cm; Wt 62.1 kg
[2022-12-15 19:28] LABS: HEMATOCRIT 42.1 % (36.0-47.0); HEMOGLOBIN 14.1 g/dl (12.0-15.5); MEAN CORPUSCULAR HEMOGLOBIN 29.7 pg (27.0-33.0); MEAN CORPUSCULAR HGB CONC 33.5 g/dl (32.0-36.5); MEAN CORPUSCULAR VOLUME 88.6 fl (80.0-96.0); PLATELET COUNT, AUTOMATED 454 10^3/uL (150-450); RED BLOOD COUNT 4.75 10^6/uL (4.00-5.40); WHITE BLOOD COUNT 12.7 10^3/uL (4.0-10.0)
[2022-12-15] MEDS ORDERED: MED REC IN PROGRESS XX SCH (19:40)
[2022-12-15 19:50] LABS: AMPHETAMINES LEVEL URINE NEGATIVE (NEGATIVE)
[2022-12-15 19:51] LABS: BARBITURATES URINE NEGATIVE (NEGATIVE); BENZODIAZEPINES URINE NEGATIVE (NEGATIVE); METHADONE URINE NEGATIVE (NEGATIVE); OPIATES URINE NEGATIVE (NEGATIVE); PHENCYCLIDINE URINE NEGATIVE (NEGATIVE)
[2022-12-15 19:52] LABS: ETHYL ALCOHOL (ETHANOL) < 0.003 % (0.000-0.010)
[2022-12-15 19:53] LABS: SALICYLATE LEVEL < 3.0 MG/DL (<30)
[2022-12-15 19:54] LABS: ACETAMINOPHEN LEVEL < 2.0 UG/ML (10.0-20.0); ALBUMIN 3.7 G/DL (3.2-5.2); ALKALINE PHOSPHATASE 81 U/L (46-116); ALT/SGPT < 9 U/L (7.0-40); AST/SGOT < 8 U/L (<34); BILIRUBIN,DIRECT 0.2 MG/DL (<0.4); BILIRUBIN,TOTAL 0.5 MG/DL (0.3-1.2); BLOOD UREA NITROGEN 14 MG/DL (9-23); CALCIUM LEVEL 9.2 MG/DL (8.5-10.1); CARBON DIOXIDE LEVEL 27 MMOL/L (20-31); CHLORIDE LEVEL 105 MMOL/L (98-107); CREATININE FOR GFR 0.95 MG/DL (0.55-1.30); GLOMERULAR FILTRATION RATE > 60.0 (>60); GLUCOSE, FASTING 110 MG/DL (60-100); POTASSIUM SERUM 4.3 MMOL/L (3.5-5.1); SODIUM LEVEL 138 MMOL/L (136-145); TOTAL PROTEIN 6.9 G/DL (5.7-8.2)
[2022-12-15 19:55] LABS: CANNABINOIDS URINE POSITIVE (NEGATIVE); COCAINE METABOLITE URINE POSITIVE (NEGATIVE)
[2022-12-15] MEDS ORDERED: HOME MED LIST COMPLETE! XX SCH (19:55)
[2022-12-15 19:56] LABS: THYROID STIMULATING HORMONE 1.462 uIU/ML (0.55-4.78)
[2022-12-15 20:02] LABS: HCG, SERUM QUALITATIVE NEGATIVE (NEGATIVE)
[2022-12-15] MEDS ORDERED: NICOTINE 21MG/24HR 1 EA TRANSDERMAL TD ONE (21:25)
[2022-12-15] MEDS ORDERED: diphenhydrAMINE 25MG CAP PO PRN (22:00)
[2022-12-15] MEDS ORDERED: ACETAMINOPHEN TAB 650MG DOSE (2X325MG) PO PRN (22:00)
[2022-12-15] MEDS ORDERED: MOM 30ML SUSPENSION UDC PO PRN (22:00)
[2022-12-15] MEDS ORDERED: OLANZapine ORAL DISINTEGRATING TAB 5MG PO PRN (22:00)
[2022-12-15] MEDS ORDERED: MAALOX 30 ML SUSP *UDC PO PRN (22:00)
[2022-12-16 07:49] LABS: APPEARANCE, URINE CLOUDY (CLEAR); BACTERIA, URINE AUTO 1+ (NEGATIVE); BILIRUBIN, URINE AUTO NEGATIVE (NEGATIVE); BLOOD, URINE BLOOD 3+ (NEGATIVE); CALCIUM OXALATE CRYSTALS SMALL; COLOR, URINE YELLOW (YELLOW); GLUCOSE, URINE (UA) AUTO NEGATIVE (NEGATIVE); KETONE, URINE AUTO NEGATIVE (NEGATIVE); LEUKOCYTE ESTERASE, URINE AUTO 3+ (NEGATIVE); MUCUS, URINE SMALL (NEGATIVE); NITRITE, URINE AUTO NEGATIVE (NEGATIVE); PROTEIN, URINE AUTO NEGATIVE (NEGATIVE); RBC, URINE AUTO 17 /HPF (0-3); SPECIFIC GRAVITY URINE AUTO 1.017 (1.002-1.035); SQUAMOUS EPITHELIAL CELL UR AU 3 /HPF (0-6); TRANSITIONAL EPITHELIAL AUTO 2 /HPF; WBC, URINE AUTO TNTC /HPF (0-3)
[2022-12-16 15:58] VITALS: BP 117/74; TEMP 97.4; O2SAT 99
[2022-12-16] MEDS ORDERED: ISOVUE-370 76% 100ML VIAL As Ordered ONE (16:53)
[2022-12-16 17:47] LABS: C REACTIVE PROTEIN QUANTITATIV 0.7 MG/DL (<1.0)
[2022-12-16 18:01] LABS: PROCALCITONIN 0.04 ng/ml
[2022-12-16] MEDS: LevoFLOXacin 750 MG TABLET PO SCH (18:52)
[2022-12-16] MEDS: IBUPROFEN 400MG TAB PO PRN (21:41)
[2022-12-16] MEDS: traZODone 50 MG TAB PO PRN (23:02)
[2022-12-17] MEDS: LevoFLOXacin 750 MG TABLET PO SCH (05:31)
[2022-12-17 06:00] VITALS: BP 128/58; TEMP 97.5; O2SAT 98
[2022-12-17] MEDS ORDERED: NICOTINE 14 MG/24 HR TRANSDERMAL TD SCH (09:00)
[2022-12-17] MEDS: SERTRALINE HCL 25 MG TABLET PO SCH (15:02)
[2022-12-17 18:00] VITALS: BP 106/58; TEMP 97.2
[2022-12-17] MEDS: IBUPROFEN 400MG TAB PO PRN (19:27)
[2022-12-17] MEDS ORDERED: OLANZapine 5 MG TAB PO SCH (21:00)
[2022-12-17] MEDS: traZODone 50 MG TAB PO PRN (22:02)
[2022-12-18] MEDS: LevoFLOXacin 750 MG TABLET PO SCH (05:30)
[2022-12-18 06:39] VITALS: BP 129/70; TEMP 97.6; O2SAT 97
[2022-12-18] MEDS: SERTRALINE HCL 25 MG TABLET PO SCH (09:57)
[2022-12-18] MEDS ORDERED: TRAZ-252 PO (10:55)
[2022-12-18] MEDS ORDERED: LEVO1TAB40 PO (10:55)
[2022-12-18] MEDS ORDERED: SERT25TA21 PO (10:55)
[2022-12-18] MEDS ORDERED: NICO14PA TD (10:55)
[2022-12-18] MEDS ORDERED: OLAN1TAB16 PO (10:55)
== END 2022-12-18 13:46 | disposition home or self-care (01) | DRG 774 ==
LOC: M ED 18:08 → M ED INP 22:00 → M PSY 12-16 14:55
PROVIDERS: ADMIT Psychiatry & Neurology Psychiatry; ATTEND Student in an Organized Health Care Education/Training Program
DX: F12.151 Cannabis abuse with psychotic disorder with hallucinations (principal); F41.8 Other specified anxiety disorders; Z62.811 Personal history of psychological abuse in childhood; F17.200 Nicotine dependence, unspecified, uncomplicated; F14.151 Cocaine abuse with cocaine-induced psychotic disorder with hallucinations; F15.151 Other stimulant abuse with stimulant-induced psychotic disorder with hallucinations; Z91.419 Personal history of unspecified adult abuse

== ENCOUNTER 2024-11-15 08:49 | Emergency (ER) | payer MEDICAID, OTHER, SELFPAY ==
[~2024-11-15] VITALS: Ht 162.6 cm; Wt 65.5 kg
[~2024-11-15 08:49] MED LIST changes: +LEVO1TAB40 PO; +NICO14PA TD; +OLAN1TAB16 PO; +SERT25TA21 PO; +TRAZ-252 PO
[2024-11-15 09:00] VITALS: BP 113/61; TEMP 100.4; O2SAT 98
[2024-11-15 10:26] LABS: BASO # 0.0 10^3/uL (0.0-0.2); BASO % 0.3 % (0.0-1.0); EOS # 0.0 10^3/uL (0.0-0.5); EOS % 0.2 % (0.0-3.0); LYMPH # 0.9 10^3/uL (1.5-5.0); LYMPH % 6.9 % (24.0-44.0); MONO # 1.1 10^3/uL (0.0-0.8); MONO % 8.3 % (2.0-8.0); NEUTROPHILS # 11.0 10^3/uL (1.5-8.5); NEUTROPHILS % 83.8 % (36.0-66.0); PLATELET COUNT, AUTOMATED 283 10^3/uL (150-450)
[2024-11-15 10:44] LABS: KETONE, URINE AUTO RFX NEGATIVE (NEGATIVE); RBC, URINE AUTO RFX 0 /HPF (0-3); SQUAM EPITHELIAL CELL UR AURFX 0 /HPF (0-6); WBC, URINE AUTO RFX 6 /HPF (0-3)
[2024-11-15 11:10] LABS: CALCIUM LEVEL 8.8 MG/DL (8.5-10.1); CARBON DIOXIDE LEVEL 26 MMOL/L (20-31); CHLORIDE LEVEL 102 MMOL/L (98-107); CREATININE FOR GFR 0.75 MG/DL (0.55-1.30); GLOMERULAR FILTRATION RATE > 90.0 (>60); POTASSIUM SERUM 4.2 MMOL/L (3.5-5.1); SODIUM LEVEL 136 MMOL/L (136-145)
[2024-11-15 11:21] LABS: HCG, SERUM QUALITATIVE NEGATIVE (NEGATIVE)
[2024-11-15 11:34] LABS: LEUKOCYTE ESTERASE UR AUTO RFX 2+ (NEGATIVE); NITRITE, URINE AUTO RFX POSITIVE (NEGATIVE)
== END 2024-11-15 11:55 | disposition left against medical advice (07) ==
LOC: EDBD 08:49 → M ED 08:49
DX: Z53.21 Procedure and treatment not carried out due to patient leaving prior to being seen by health care provider (principal)